=== PATIENT | female | born 1955 | race Caucasian/White ===

== ENCOUNTER 2018-06-21 07:17 | Day surgery (SDC) | payer MEDICARE, BC ==
[~2018-06-21] VITALS: Ht 152.4 cm; Wt 59.4 kg
[~2018-06-21 07:17] MED LIST: ACID CONTROL MA20 MG PO; ALPRAZOLAM0.25 MG PO; AUGMENTIN500TAB PO; BENTYL10 MG PO; BIOTUSSIN PO; C 250 PO; CALCIUM600 M2 PO; CELEBREX100 M1 PO; CELEXA40 MG PO; CITALOPRAM40 MG PO; CLARITIN10 M1 PO; COLACE100 MG PO; CYCLOBENZAPR10 MG PO; DICLOXACILL500 MG PO; ESTROGENS XX; EXCEDRI3 PO; FLUARIX QUADRIV1 IN1 IM; LEVOTHYROXIN25 MC1 PO; LIPITOR40 M1 PO; LIPITOR40 MG OR; LIPITOR40 MG PO; LOMOTIL2.5 MG PO; Levaquin PO; MEDDOSEPAK PO; METRONIDAZOL500 MG PO; MULTIVITAMI1 PO; NORCO1 TA1 OR; OXYCONTIN15 MG PO; PERCOCET 5/321 COMBO PO; PERCOCET1 TA4 PO; PNEUMOVAX 23 IM; PRILOSEC20 MG PO; PRILOSEC40 MG OR; PROTONIX40 M2 PO; SINGULAIR10 MG OR; SINGULAIR10 MG PO; TRAMADOL HCL E300 M1 PO; TRAZODONE50 MG PO; ULTRAM ER100 MG OR; ULTRAM ER300 MG PO; VENTOLIN HF1 INH; VITAMIN D22000 UNIT PO; XANAX0.25 MG PO; XGEVA SC
[2018-06-21 11:08] VITALS: BP 119/79
== END 2018-06-21 11:20 | disposition home or self-care (01) ==
LOC: ENDO 07:17
PROVIDERS: ATTEND Internal Medicine Gastroenterology
PROC: 0DJD8ZZ Inspection of Lower Intestinal Tract, Via Natural or Artificial Opening Endoscopic (ICD-10-PCS; principal; 2018-06-21)
DX: K57.31 Diverticulosis of large intestine without perforation or abscess with bleeding (principal); K64.8 Other hemorrhoids; K64.4 Residual hemorrhoidal skin tags; Q43.8 Other specified congenital malformations of intestine; K21.9 Gastro-esophageal reflux disease without esophagitis; R13.10 Dysphagia, unspecified; E03.9 Hypothyroidism, unspecified; J45.909 Unspecified asthma, uncomplicated; F32.9 Major depressive disorder, single episode, unspecified; M41.9 Scoliosis, unspecified

== ENCOUNTER 2018-06-27 11:00 | Outpatient (RCR) | payer MEDICARE, BC | END 2018-07-17 14:30 | disposition home or self-care (01) | LOC: PT 11:00 | PROVIDERS: ATTEND Physical Medicine & Rehabilitation Pain Medicine | DX: S16.1XXD Strain of muscle, fascia and tendon at neck level, subsequent encounter (principal); M54.2 Cervicalgia ==

== ENCOUNTER 2018-08-09 06:05 | Day surgery (SDC) | payer MEDICARE, BC ==
[~2018-08-09] VITALS: Ht 152.4 cm; Wt 59.4 kg
[~2018-08-09 06:05] MED LIST changes: -VITAMIN D22000 UNIT PO; +VITAMIN D32000 UNIT PO
[2018-08-09 08:14] VITALS: BP 113/63
== END 2018-08-09 08:35 | disposition home or self-care (01) ==
LOC: ENDO 06:05 → ORM 13:25 → ENDO 13:25 → ORM 14:30 → ENDO 14:30
PROVIDERS: ATTEND Internal Medicine Gastroenterology
PROC: 0D758ZZ Dilation of Esophagus, Via Natural or Artificial Opening Endoscopic (ICD-10-PCS; principal; 2018-08-09)
PROC: 0DB48ZX Excision of Esophagogastric Junction, Via Natural or Artificial Opening Endoscopic, Diagnostic (ICD-10-PCS; 2018-08-09)
PROC: 0DB78ZX Excision of Stomach, Pylorus, Via Natural or Artificial Opening Endoscopic, Diagnostic (ICD-10-PCS; 2018-08-09)
PROC: 0DB58ZX Excision of Esophagus, Via Natural or Artificial Opening Endoscopic, Diagnostic (ICD-10-PCS; 2018-08-09)
DX: K22.2 Esophageal obstruction (principal); K21.0 Gastro-esophageal reflux disease with esophagitis; K22.8 Other specified diseases of esophagus; Q39.6 Congenital diverticulum of esophagus; K29.50 Unspecified chronic gastritis without bleeding; Q40.8 Other specified congenital malformations of upper alimentary tract; K25.9 Gastric ulcer, unspecified as acute or chronic, without hemorrhage or perforation; K44.9 Diaphragmatic hernia without obstruction or gangrene; E03.9 Hypothyroidism, unspecified

== ENCOUNTER 2019-05-20 21:29 | Emergency (ER) | payer MEDICARE, BC ==
[~2019-05-20] VITALS: Ht 152.4 cm; Wt 59.1 kg
[2019-05-21 03:51] VITALS: BP 118/76
== END 2019-05-21 02:28 | disposition home or self-care (01) ==
LOC: ED 21:29
PROC: 0S9C3ZZ Drainage of Right Knee Joint, Percutaneous Approach (ICD-10-PCS; principal; 2019-05-20)
DX: S76.111A Strain of right quadriceps muscle, fascia and tendon, initial encounter (principal); M25.461 Effusion, right knee; X50.1XXA Overexertion from prolonged static or awkward postures, initial encounter; Y92.520 Airport as the place of occurrence of the external cause

== ENCOUNTER 2019-08-03 08:47 | Emergency (ER) | payer MEDICARE, BC ==
[~2019-08-03] VITALS: Ht 152.4 cm; Wt 56.0 kg
[2019-08-03] MEDS ORDERED: LEVOTHYROXIN50 MCG PO (08:58)
[2019-08-03] MEDS ORDERED: CARAFATE1 GM PO (09:03)
[2019-08-03] MEDS ORDERED: PRILOSEC20 MG/CAP PO (09:03)
[2019-08-03 09:08] LABS: HEMATOCRIT 40.8 % (37.0-47.0); HEMOGLOBIN 13.3 g/dl (12.0-16.0); IMMATURE GRANULOCYTES 0.4 % (0.0-5.0); MEAN CELL VOLUME 92.3 fL CALC (80.0-100.0); MEAN CORPUSCULAR HGB 30.1 pG CALC (26.0-32.0); MEAN CORPUSCULAR HGB CONC 32.6 g/L CALC (32.0-36.0); NEUT# 14.27 thou/uL (2.00-7.15); RED BLOOD COUNT 4.42 mill/uL (4.20-5.60); RED CELL DISTRI WIDTH 12.6 % (11.5-15.5)
[2019-08-03 09:27] LABS: ALBUMIN 4.3 g/dL (3.2-5.0); ALKALINE PHOSPHATASE 97 u/l (38-126); AMYLASE 128 u/l (30-110); ANION GAP 13 (6-22 (CALC)); BUN 10 mg/dL (8-23); BUN/CREATININE RATIO 18 (12-20 (CALC)); CARBON DIOXIDE 28 mmol/l (22-30); CHLORIDE 99 mmol/l (95-108); CREATININE 0.5 mg/dL (0.5-1.0); GFR > 60 ML/MIN (>=60 (CALC)); GFR FOR AFR.AMER. > 60 ML/MIN (>=60 (CALC)); LIPASE 68 u/l (23-300); POTASSIUM 3.6 mmol/l (3.5-5.1); SGOT/AST 25 u/l (9-36); SODIUM 135 mmol/l (137-146); TOTAL PROTEIN 6.8 g/dL (6.3-8.2)
[2019-08-03 09:35] LABS: BILIRUBIN, TOTAL 0.5 mg/dL (0.0-1.4)
[2019-08-03 11:02] LABS: URINE BILIRUBIN - DIPSTICK NEGATIVE (NEGATIVE); URINE BLOOD DIPSTICK NEGATIVE (NEGATIVE); URINE COLOR YELLOW; URINE GLUCOSE - DIPSTICK NEGATIVE (NEGATIVE); URINE KETONE 40 mg/dL (NEGATIVE); URINE LEUK ESTERASE NEGATIVE (NEGATIVE); URINE NITRITE - DIPSTICK NEGATIVE (Negative); URINE PH 8.5 (4.5-8.0); URINE PROTEIN - DIPSTICK NEGATIVE (NEG-TRACE); URINE SPECIFIC GRAVITY 1.015; URINE UROBILINOGEN - DIPSTICK 0.2 E.U./dL (0.2)
[2019-08-03 11:07] LABS: BARBITURATES NEGATIVE (NEGATIVE); COCAINE NEGATIVE (NEGATIVE); METHADONE NEGATIVE (NEGATIVE); TETRAHYDROCANNABIONOL NEGATIVE (NEGATIVE); TRICYLIC ANTIDEPRESSANTS NEGATIVE (NEGATIVE)
[2019-08-03 11:08] LABS: OXCYCODONE POSITIVE (NEGATIVE)
[2019-08-03] MEDS ORDERED: BACTRIM DS1 TAB PO (11:38)
[2019-08-03] MEDS ORDERED: PHENERGAN25 MG/TAB PO (11:38)
[2019-08-03 13:05] VITALS: BP 125/62
[2019-08-03 13:27] LABS: C. DIFFICILE TOXIN A&B NEGATIVE (NEGATIVE)
== END 2019-08-03 13:05 | disposition home or self-care (01) ==
LOC: ED 08:47
PROVIDERS: Emergency Medicine
DX: K52.9 Noninfective gastroenteritis and colitis, unspecified (principal)

== ENCOUNTER 2019-11-21 | Day surgery (SDC) | payer MEDICARE, BC ==
[~2019-11-21] MED LIST changes: +BACTRIM DS1 TAB PO; -C 250 PO; +CARAFATE1 GM PO; +LEVOTHYROXIN50 MCG PO; +PHENERGAN25 MG/TAB PO; +PRILOSEC20 MG/CAP PO; +VITAMIN C500 M5 PO
== END 2019-11-21 09:37 | disposition home or self-care (01) ==
PROC: 0DB48ZX Excision of Esophagogastric Junction, Via Natural or Artificial Opening Endoscopic, Diagnostic (ICD-10-PCS; principal; 2019-11-21)
PROC: 0DB78ZX Excision of Stomach, Pylorus, Via Natural or Artificial Opening Endoscopic, Diagnostic (ICD-10-PCS; 2019-11-21)
DX: K22.2 Esophageal obstruction (principal); K22.5 Diverticulum of esophagus, acquired; K29.50 Unspecified chronic gastritis without bleeding; K25.9 Gastric ulcer, unspecified as acute or chronic, without hemorrhage or perforation; K44.9 Diaphragmatic hernia without obstruction or gangrene; E03.9 Hypothyroidism, unspecified

== ENCOUNTER 2020-04-14 18:00 | Inpatient (IN) | payer MEDICARE, BC ==
[~2020-04-14] VITALS: Ht 152.4 cm; Wt 51.0 kg
[2020-04-14 18:15] VITALS: BP 123/69
--- NOTE | 2020-04-14 18:15 | NUR ---
PT ARRIVED TO MED/SURG ROOM 274 IN STABLE CONDITION VIA STRETCHER ACCOMPANIED BY mDialog;PT AMMBULATED TO BEDSIDE WITH A STEADY GAIT;PT A&O X3,ORIENTED TO ROOM AND CALL LIGHT SYSTEM;VS AND WT OBTAINED BY ROBI PETERS;PT ASSISTED TO RESTROOM PER REQUEST AND THEN REPOSITIONED BACK INTO BED FOR COMFORT;PT DENIES ANY ADDITIONAL NEEDS AT THIS TIME;ENCOURAGED TO CALL FOR ASSISTANCE IF NEEDED;FALL PRECAUTIONS IN PLACE WITH BED IN THE LOWEST POSITION AND CALL LIGHT IN REACH;WILL CONTINUE TO MONITOR
--- NOTE | 2020-04-14 19:55 | NUR ---
PT RESTING IN BED, ALERT AND ORIENTED. RESPIRATIONS EVEN AND UNLABORED ON RA. LUNGS SOUND CLEAR. PEDAL PULSES ARE STRONG. PT REPORTS HAVING PAIN IN HER HEAD, NECK, AND BACK. MD TO BE NOTIFIED. PT ORIENTED TO ROOM AND CALL [facility] SYSTEM. SAFETY PRECAUTIONS IN PLACE. WILL CONTINUE TO MONITOR.
--- NOTE | 2020-04-15 00:20 | NUR ---
PT RESTING IN BED WITH EYES CLOSED. RESPIRATIONS EVEN AND UNLABPORED ON RA. NO S/S OF DISTRESS AT THIS TIME. SAFETY PRECAUTIONS IN PLACE. WILL CONTINUE TO MONITOR.
[2020-04-15 04:09] VITALS: BP 96/62
--- NOTE | 2020-04-15 04:45 | NUR ---
PT ASISTED TO THE RESTROOM X1 ASSIST, GATE STEADY, PT ENCOURAGED TO CALL FOR ASSISTANCE WHEN FINISHED. SAFETY PRECAUTIONSIN PLACE. WILL CONTINUE TO MONITOR.
[2020-04-15 05:35] LABS: MEAN CELL VOLUME 94.6 fL CALC (80.0-100.0); MEAN CORPUSCULAR HGB CONC 32.8 g/dL CAL (32.0-36.0); RED BLOOD COUNT 3.68 mill/uL (4.20-5.60); RED CELL DISTRI WIDTH 13.2 % (11.5-15.5)
[2020-04-15 05:48] LABS: HEMATOCRIT 34.8 % (37.0-47.0); HEMOGLOBIN 11.4 g/dl (12.0-16.0)
[2020-04-15 06:07] LABS: ALKALINE PHOSPHATASE 62 u/l (38-126); BILIRUBIN, TOTAL 0.3 mg/dL (0.0-1.4); BUN 10 mg/dL (8-23); BUN/CREATININE RATIO 19 (12-20 (CALC)); CHLORIDE 106 mmol/l (95-108); CREATININE 0.5 mg/dL (0.5-1.0); GFR > 60 ML/MIN (>=60 (CALC)); GFR FOR AFR.AMER. > 60 ML/MIN (>=60 (CALC)); POTASSIUM 3.2 mmol/l (3.5-5.1); SGOT/AST 26 u/l (9-36); SODIUM 134 mmol/l (137-146)
[2020-04-15 06:11] LABS: ALBUMIN 2.8 g/dL (3.2-5.0); ANION GAP 7 (6-22 (CALC)); CARBON DIOXIDE 24 mmol/l (22-30); TOTAL PROTEIN 4.8 g/dL (6.3-8.2)
--- NOTE | 2020-04-15 06:55 | NUR ---
REPORT RECEIVED FROM JACEY LYONS;PT APPEARS TO BE SLEEPING IN SUPINE POSITION;NO S/S OF DISTRESS NOTED;RESPIRATIONS EVEN AND UNLABORED ON RA;IV FLUIDS INFUSING WITH EASE PER ORDER;ALL SAFETY PRECAUTIONS IN PLACE WITH BED IN THE LOWEST POSITION AND CALL LIGHT IN REACH;WILL CONTINUE TO MONITOR
--- NOTE | 2020-04-15 08:15 | NUR ---
PT RESTING IN SEMI FOWLERS POSITION,A&O X3;VS OBTAINED AND ASSESSMENT COMPLETED;PT REPORTS HEADACHE PAIN RATING 8/10 ON THE PAIN SCALE AND REQUESTS PRN TYLENOL. ALHAJIANRP NOTIFIED OF TYLENOL REQUEST AND NEW ORDERS RECEIVED,PT TO BE MEDICATED PER EMAR;RESPIRATIONS EVEN AND UNLABORED ON RA,CLEAR LUNG SOUNDS;ABDOMEN SOFT ON PALPATION AND ACTIVE IN ALL 4 QUADRANTS, TENDERNESS NOTED TO ALL QUADRANTS;STRONG PEDAL PULSES;SKIN INTACT;EMS #20G TO LAC INFUSING NS @ 100ML/HR,SITE APPEARS HEALTHY;PT DENIES ANY ADDITIONAL NEEDS AT THIS TIME AND IS ENCUORAGED TO CALL FOR ASSISTANCE IF NEEDED;FALL PRECAUTIONS IN PLACE WITH CALL LIGHT IN REACH;WILL CONTINE TO MONITOR
[2020-04-15 08:16] VITALS: BP 101/63
--- NOTE | 2020-04-15 10:10 | NUR ---
PT REPORTS NAUSEA AND REQUESTS ANTIEMETIC. FILIBERTO MANE NOTIFIED. NO NEW ORDERS RECEIVED AT THIS TIME.
--- NOTE | 2020-04-15 10:43 | NUR ---
PT MEDICATED WITH PRN ZOFRAN 4MG IVP AT THIS KAY.WILL CONTINUE TO MONITOR FOR EFFECTIVENESS
--- NOTE | 2020-04-15 11:40 | NUR ---
AT BEDSIDE DISCUSSING POC.
--- NOTE | 2020-04-15 12:35 | NUR ---
PT RESTING IN SEMI FOWLERS POSITION;RESPIRATIONS EVEN AND UNLABORED ON RA;PT REPORTS ABDOMINAL PAIN RATING 8/10 ON THE PAIN SCALE AND REQUESTS PAIN MEDICATION,PT MEDICATED WITH PRN PERCOCET 10/325MG PO AT THIS TIME;IV FLUIDS CONTINUE TO INFUSE WITH EASE;PT HAD A SCANT/BROWN BM AND STOOL SAMPLE COLLECTED AT THIS TIME;PT DENIES ANY ADDITIONAL NEEDS AND IS ENCOURAGED TO CALL FOR ASSISTANCE IF NEEDED;CALL LIGHT IN REACH;WILL CONTINUE TO MONITOR
--- NOTE | 2020-04-15 14:43 | NUR ---
CALL RECEIVED FROM VITOR IN THE LAB. PT IS POSITIVE FOR C DIFF. CONTACT PLUS PRECAUTIONS PUT INTO PLACE AT THIS TIME.
[2020-04-15 15:30] VITALS: BP 115/66
--- NOTE | 2020-04-15 16:50 | NUR ---
PT RESTING AT BEDSIDE;RESPIRATIONS EVEN AND UNLABORED ON RA;PT REPORTS HEADACHE/ABDOMINAL PAIN RATING 5/10 ON THE PAIN SCALE AND REQUESTS PRN TYLENOL, PT TO BE MEDICATED WITH TYLENOL 650MG PO;IV FLUIDS CONTINUE TO INFUSE WITH EASE;PT DENIES ANY ADDITIONAL NEEDS AT THIS TIME;FALL AND CONTACT PRECAUTIONS REMAIN IN PLACE WITH CALL LIGHT IN REACH;WILL CONTINUE TO MONITOR
[2020-04-15 19:00] VITALS: BP 114/68
--- NOTE | 2020-04-15 21:02 | NUR ---
PT RESTING IN BED, ALERT AND ORIENTED. RESPIRATIONS EVEN AND UNLABORED ON RA, LUNGS SOUND CLEAR. PEDAL PULSES STRONG. PT EDUCATED ON PLAN OF CARE. SAFETY PRECAUTIONS IN PLACE, WILL CONTINUE TO MONTIOR.
--- NOTE | 2020-04-16 00:18 | NUR ---
PT RESTING IN BED RESPIRATIONS EVEN AND UNLABORED, NO S/S OF DISTRESS AT THIS TIME, WILL CONTINUE TO MONITOR.
--- NOTE | 2020-04-16 03:37 | NUR ---
PT RESTING IN BED NO S/S OF DISTRESS AT THIS TIME. SAFETY PRECAUTIONS IN PLACE.WILL CONTINUE TO MONITOR.
[2020-04-16 04:30] VITALS: BP 131/80
[2020-04-16 05:03] LABS: HEMATOCRIT 36.6 % (37.0-47.0); HEMOGLOBIN 11.4 g/dl (12.0-16.0); IMMATURE GRANULOCYTES 0.3 % (0.0-5.0); MEAN CELL VOLUME 96.6 fL CALC (80.0-100.0); MEAN CORPUSCULAR HGB 30.1 pG CALC (26.0-32.0); MEAN CORPUSCULAR HGB CONC 31.1 g/dL CAL (32.0-36.0); NEUT# 4.1 thou/uL (2.00-7.15); RED BLOOD COUNT 3.79 mill/uL (4.20-5.60); RED CELL DISTRI WIDTH 13.3 % (11.5-15.5)
[2020-04-16 05:38] LABS: ALKALINE PHOSPHATASE 62 u/l (38-126); ANION GAP 4 (6-22 (CALC)); BILIRUBIN, TOTAL 0.3 mg/dL (0.0-1.4); BUN 4 mg/dL (8-23); BUN/CREATININE RATIO 8 (12-20 (CALC)); CARBON DIOXIDE 25 mmol/l (22-30); CHLORIDE 111 mmol/l (95-108); CREATININE 0.5 mg/dL (0.5-1.0); GFR > 60 ML/MIN (>=60 (CALC)); GFR FOR AFR.AMER. > 60 ML/MIN (>=60 (CALC)); MAGNESIUM 1.9 mg/dL (1.6-2.3); POTASSIUM 3.7 mmol/l (3.5-5.1); SGOT/AST 27 u/l (9-36); SODIUM 137 mmol/l (137-146); TOTAL PROTEIN 5.1 g/dL (6.3-8.2)
[2020-04-16 06:01] LABS: TSH, 3RD GENERATION 2.26 uIU/mL (0.47 - 4.68)
[2020-04-16 08:10] VITALS: BP 141/68
--- NOTE | 2020-04-16 08:10 | NUR ---
ASSESSMENT IS COMPLETED: IV SITE IS FREE FROM REDNESS OR EDEMA. HR IS REG,PULSES ARE STRONG X4, ABD IS SOFT WITH ACTIVE BS. BREATH SOUNDS ARE CLEAR BILATERALLY. CONTINEU TO OSBERVE AND CLARICEIOR.
--- NOTE | 2020-04-16 12:30 | NUR ---
PT IS RELAXING AND TALKING ON THE PHONE WITH FAMILY NO DISTRESS NOTED. IV SITE IS FREE FROM REDNESS OR EDEMA. CONTINUE TO OBSERVE AND MONITOR.
[2020-04-16 15:00] VITALS: BP 133/73
--- NOTE | 2020-04-16 16:15 | NUR ---
PT IS RELAXING IN BED NO DISTRESS NOTED. CONTINUE TO OSBERVE AND MONITOR. IV SITE IS FREE FROM REDNESS OR EDEMA
[2020-04-16 19:00] VITALS: BP 140/62
--- NOTE | 2020-04-16 20:30 | NUR ---
PT RESTING IN BED. RESPIRATIONS EVEN AND UNLABORED. PT REPORTS HAVING PAIN PT TO BE MEDICATED PER EMAR ORDERS. SAFETY PRECAUTIONSIN PLACE. WILL CONTINUE TO MONITOR.
--- NOTE | 2020-04-16 22:58 | NUR ---
PT RESTING IN BED, ALERT AND ORIENTED. RESPIRATIONS EVEN AND UNLABORED ON R LUNGS SOUND CLEAR. PEDAL PULSES STRONG. SAFETY PRECAUTIONS IN PLACE, WILL CONTINUE TO MONTIOR.
--- NOTE | 2020-04-17 00:15 | NUR ---
PT RESTING IN BED. RESPIRATIONS EVEN AND UNLABORED ON RA. NO S/S OF DISTRESS AT THIS TIME. SAFETY PRECAUTIONS IN PLACE. WILL CONTINUE TO MONITOR.
[2020-04-17 04:10] VITALS: BP 135/75
--- NOTE | 2020-04-17 04:34 | NUR ---
PT RESTING IN BED. RESPIRATIONS EVEN AND UNLABORED ON RA. NO S/S OF DISTRESS AT THIS TIME. SAFETY PRECAUTIONS IN PLACE. WILL CONTINUE TO MONITOR.
[2020-04-17 08:00] VITALS: BP 132/81
--- NOTE | 2020-04-17 08:00 | NUR ---
ASSESSMENT IS COMPLETED: IV SITE IS FREE FROM REDNESS OR EDEMA. HR IS REG,PULSES ARE STRONG X4, ABD IS SOFT WITH ACTIVE BS. BREATH SOUNDS ARE CLEAR ,BILATERALLY. PT INQUIRED ABOUT WHAT SHE CAN EAT.
--- NOTE | 2020-04-17 08:45 | NUR ---
GAVE LITERATURE RE: ROUGHAGE ON FOOD AND CDIFF.
--- NOTE | 2020-04-17 12:30 | NUR ---
PT IS RELAXING IN BED WITH NO DISTRESS NOTED. IV SITE IS FREE FROM REDNESS OR EDEMA.
[2020-04-17 14:50] VITALS: BP 135/68
--- NOTE | 2020-04-17 16:00 | NUR ---
REPORT REC FROM LIZANDRO FELICIANO. PT LAYING IN BED. NO DISTRESS OR NEEDS AT THIS TIME. CONTACT PLUS PRECAUTIONS IN PLACE. CALL LIGHT IN REACH. CONTINUE TO MONITOR.
[2020-04-17 18:31] VITALS: BP 132/84
--- NOTE | 2020-04-17 20:00 | NUR ---
PT RESTING IN BED,ALERT AND ORIENTED. RESPIRATIONS EVEN AND UNLABORED ON RA. LUNGS SOUND CLEAR. PEDAL PULSES STRONG. PT REPORTS HAVING PAIN IN HER HEAD AND NECK, PT TO BE MEDICATED PER EMAR ORDERS. SAFETY PRECAUTIONS IN PLACE. WILL CONTINUE TO MONITOR.
--- NOTE | 2020-04-18 02:09 | NUR ---
PT RESTING IN BED, ALERT AND ORIENTED. RESPIRATIONS EVEN AND UNLABORED ON RA. NO S/S OF DISTRESS AT THIS TIME. SAFETY PRECAUTIONS IN PLACE. WILL CONTINUE TO MONITOR.
[2020-04-18 03:40] VITALS: BP 143/85
--- NOTE | 2020-04-18 04:19 | NUR ---
PT RESTING IN BED. PT FEELING EMOTIONAL, ALLOWED FOR PT TO VOICE CONCERNS. SAFETY PRECAUTIONS IN [place]. WILL CONTINUE TO MONITOR.
[2020-04-18 08:06] VITALS: BP 147/81
--- NOTE | 2020-04-18 08:44 | NUR ---
SHIFT CHANGE REPORT, PT AWAKE ALERT AND ORIENTED, C/O LEFT NECK PAIN AND DIARRHEA, IVF INFUSING, CALL [facility] IN REACH
--- NOTE | 2020-04-18 12:37 | NUR ---
DR MARY ROUNDED AND DISCUSSED PLAN OF CARE, PT STATED UNDERSTANDING. PT REQUEST PAIN MED FOR NECK PAIN, ALL NEEDS ADDRESSED.
[2020-04-18 15:00] VITALS: BP 141/86
--- NOTE | 2020-04-18 15:39 | NUR ---
RESTING IN BED, ALL NEEDS MET/ADDRESSED.
[2020-04-18 19:20] VITALS: BP 144/88
--- NOTE | 2020-04-18 20:40 | NUR ---
UPON ENTERING ROOM PT FOUND TO BE RESTING IN BED. APPEARS COMFORTABLE AND IN NO APPARENT DISTRESS. RESPIRATIONS ARE REGULAR AND UNLABORED. PHYSICAL ASSESMENT COMPLETE AT THIS TIME. SCHEDULED MED(S) ADMINISTERED, SEE E-MAR. PLAN OF CARE REVIEWED, PT DENIES QUESTIONS, VERBALIZES UNDERSTANDING. DENIES NEEDS AT THIS TIME. ITEMS WITHIN REACH, BED LOCKED IN LOW POSITION W/ BEDRAILS UP X2. CALL [facility] WITHIN REACH, AGREES TO CALL PRN.
--- NOTE | 2020-04-19 00:42 | NUR ---
PT APPEARS TO BE SLEEPING COMFORTABLY, NO APPARENT DISTRESS, RESPIRATIONS REGULAR AND UNLABORED. CALL [facility] REMAINS WITHIN REACH.
[2020-04-19 03:15] VITALS: BP 134/84
--- NOTE | 2020-04-19 05:57 | NUR ---
PHYSICAL ASSESMENT UNCHANGED FROM BEGINING OF SHIFT BASELINE. PT AFEBRILE, HEMODYNAMICS STABLE. DENIES NEEDS AT THIS TIME. ITEMS REMAIN WITHIN REACH. BED REMAINS LOCKED IN LOW POSITION W/ BEDRAILS UPX2. CALL [facility] REMAINS WITHIN REACH, AGREES TO CALL PRN.
--- NOTE | 2020-04-19 07:15 | NUR ---
REPORT RECEIVED FROM JACEY HAWKINS;PT APPEARS TO BE SLEEPING IN SUPINE POSITION;NO S/S OF DISTRESS NOTED;RESPIRATIONS EVEN AND UNLABORED ON RA;IV FLUIDS INFUSING WITH EASE TO LACE;CONTACT PLUS PRECAUTIONS NOTED;ALL SAFETY PRECAUTIONS IN PLACE WITH BED IN THE LOWEST POSITION AND CALL LIGHT IN REACH;WILL CONTINUE TO MONITOR
[2020-04-19 09:29] VITALS: BP 140/91
--- NOTE | 2020-04-19 09:30 | NUR ---
PT RESTING IN SEMI FOWLERS POSITION,A&O X3;VS OBTAINED AND ASSESSMENT COMPLETED;PT REPORTS NECK AND ABDOMINAL PAIN RATING 8/10 ON THE PAIN SCALE AND REQUESTS PRN PAIN MEDICATION,PT TO BE MEDICATED WITH PRN PERCOCET 10/325MG PO PER EMAR;RESPIRATIONS EVEN AND UNLABORED ON RA,CLEAR LUNG SOUNDS;ABDOMEN SOFT ON PALPATION AND HYPERACTIVE IN ALL 4 QUADRANTS, TENDERNESS NOTED;STRONG PEDAL PULSES;SKIN INTACT;EMS #20G TO LAC INFUSING NS @ 100ML/HR,SITE APPEARS HEALTHY;PT EDUCATED ON EMS IV SITE EXPIRATION AND REFUSES SITE CHANGE AT THIS TIME;PT REMAINS ON CONTACT PLUS PRECAUTIONS FOR C-DIFF;PT DENIES ANY ADDITIONAL NEEDS AT THIS TIME AND IS ENCOURAGED TO CALL FOR ASSISTANCE IF NEEDED;CALL LIGHT IN REACH;WILL CONTINUE TO MONITOR
--- NOTE | 2020-04-19 12:30 | NUR ---
PT RESTING IN SEMI FOWLERS POSITION;RESPIRATIONS EVEN AND UNLABORED ON RA;PT DENIES ANY CURRENT PAIN OR NEEDS;IV FLUIDS INFUSING WITH EASE PER ORDER;PO ABX ADMINISTERED AT THIS TIME;PT DENIES ANY ADDITIONAL NEEDS AND IS ENCOURAGED TO CALL FOR ASSISTANCE IF NEEDED;FALL AND CONTACT PRECAUTIONS REMAIN IN PLACE;CALL LIGHT IN REACH;WILL CONTINUE TO MONITOR
[2020-04-19 15:00] VITALS: BP 140/91
--- NOTE | 2020-04-19 15:25 | NUR ---
PT RESTING IN SEMI FOWLERS POSITION;RESPIRATIONS EVEN AND UNLABORED ON RA;PT REPORTS ABDOMEN AND NECK PAIN RATING 7/10 ON THE PAIN SCALE,PT MEDICATED WITH PRN TYLENOL 650MG PO AND BENTYL 20MG PO PER REQUEST;IV SITE REMAINS PATENT INFUSING NS WITH EASE;PT DENIES ANY ADDITIONAL NEEDS AT THIS TIME AND IS ENCOURAGED TO CALL FOR ASSISTANCE IF NEEDED;CALL LIGHT IN REACH;WILL CONTINUE TO MONITOR
--- NOTE | 2020-04-19 19:00 | NUR ---
RECEIVED REPORT FROM NURSE FRANKLYN, PATIENT RESTING IN BED, C/O ABDOMINAL PS 05/24, WILL MEDICATE, CALL LIGHT AT REACH.
[2020-04-19 19:06] VITALS: BP 120/71
--- NOTE | 2020-04-19 20:00 | NUR ---
SHIFT ASSESSMENT DONE, PRN PERCOCET GIVEN FOR ABDOMINAL PAIN, BM X 6 PREVIOUS SHIFT, WITH ONGOING IV NS @ 100CC/HR INFUSING WELL ON LAC REMAINS ON CONTACT PLUS ISOLATION, ON FULL LIQUID DIET, CALL LIGHT AT REACH.
--- NOTE | 2020-04-19 21:00 | NUR ---
SPOKE TO ID, MADE AWARE ABOUT BM X 6 AND STIILL HAVING ABDOMINAL PAIN, AND MADE THE FOLLOWING RECCOMENDATION.
--- NOTE | 2020-04-19 22:00 | NUR ---
DR. MARY MADE AWARE OF ID RECCOMENDATIONS.
--- NOTE | 2020-04-20 00:42 | NUR ---
NEW IV REINSERTED, NO COMPLAINTS AT THIS TIME, CALL LIGHT AT REACH.
[2020-04-20 04:00] VITALS: BP 113/71
--- NOTE | 2020-04-20 04:00 | NUR ---
PATIENT APPEARS TO BE SLEEPING WITH EYES CLOSED, BREATHING EVEN AND UNLABORED CALL LIGHT AT REACH.
[2020-04-20 07:15] VITALS: BP 133/79
--- NOTE | 2020-04-20 07:30 | NUR ---
RECIEVED REPORT FROM KOURTNEY. RN PT IN BATHROOM UPON ENTERING ROOM. PT DENIED ANY PAIN OR ADDITIONAL NEEDS AT THIS TIME. ALL SAFTEY PRECAUTIONS IN PLACE WITH CALL LIGHT IN REACH. WILL CONTINUE TO MONITOR
--- NOTE | 2020-04-20 09:35 | NUR ---
ASSESSMENT AND VITALS COMPLETED. BP 133/79, HR 85, O2 95% ON ROOM AIR. RESPIRATIONS ARE EVEN AND UNLABORED WITH NO SIGNS OF DISTRESS. LUNG SOUNDS ARE CLEAR. HEART RHYTHM IS NORMAL. BOWEL SOUNDS ARE HYPOTACTIVE IN ALL QUADRANTS WITH SLIGHT TENDERNESS.LAST REPORTED BM 04/20/20. RADIAL AND PEDAL PULSES ARE STRONG WITH NORMAL CAPILLARY REFILL. SKIN IS WARM AND DRY WITH NO BREAK DOWN OR EDEMA. #22G IN LEFT WRIST NS RUNNING AT 100 ML ORDERED, SITE APPEARS HEALTHY AND PATNET.PT COMPLAINS OF 6/10 PAIN IN NECK AND HEAD, PT REQUESTED TYLENOL. TYLENOL ADMINISTERED WITH MORNING MEDICATIONS.PT IS A/O X3 AND AMBULATORY. CONTACT PLUS PRECAUTIONS REMAIN IN PLACE. ALL SAFTEY PRECAUTIONS IN PLACE WITH CALL LIGHT IN REACH. WILL CONTINUE TO MONITOR
--- NOTE | 2020-04-20 10:39 | NUR ---
DR MARY AND WRITTER AT BEDSIDE DISCUSSING POC. CHANGED DIET TO SOFT TO SEE IF TOLERATED. POSSIBLE DISCARGE IN AFTERNOON IF TOLERATED. ALL SAFETY PRECAUTIONS REAMIN IN PLACE WITH CALL LIGHT IN REACH
[2020-04-20] MEDS ORDERED: FLORASTOR250 M1 PO (10:48)
[2020-04-20] MEDS ORDERED: VANCOMYCIN HCL250 M1 PO (10:48)
[2020-04-20] MEDS ORDERED: DICYCLOMINE20 MG PO (10:48)
--- NOTE | 2020-04-20 12:18 | NUR ---
PT SITTING ON SIDE OF BED EATING LUNCH. RESPIRATIONS ARE EVEN AND UNLABORED WITH NO SIGNS OF DISTRESS. PT DENIES ANY PAIN OR DISCOMFORTS AT THIS TIME. ALL SAFTEY PRECAUTIONS IN PLACE WITH CALL LIGHT IN REACH. WILL CONTINUE TO MONITOR
[2020-04-20 13:11] VITALS: BP 125/65
[2020-04-20 15:00] VITALS: BP 124/75
--- NOTE | 2020-04-20 15:50 | NUR ---
PT GOING TO CT VIA WHEELCHAIR IN STABLE CONDITION ACCOMPAINED BY ROBI ERIC
--- NOTE | 2020-04-20 16:09 | NUR ---
PT EDUCATED ON DISCHARGE INSTRUCTIONS AND NEW MEDICATIONS; BREWERS YEAST, VANCO PO,AND DICYCLOMINE. PT VERBALIZED UNDERSTANDING . IV REMOVED AT THIS TIME WITH CATHATER STILL INTACT. PT TOLERATED WELL. AWAITING TRANSPORTATION AT THIS TIME.ALL SAFTEY PRECAUTIONS IN PLACE WITH CALL LIGHT IN REACH. WILL CONTINUE TO MONITOR
--- NOTE | 2020-04-20 16:35 | NUR ---
Discharge instructions given. Patient verbalizes understanding of same. Discharged in stable condition via Wheelchair to Home with family. All belongings sent with pt. PT LEFT VIA WHEELCHAIR IN STABLE CONDITION WITH ALL DISCHARGE INSTRUCTIONS, MEDICATION PRESCRIPITION AND ALL BELONGINGS, ACCOMPAINED BY ROBI MARTINEZ
== END 2020-04-20 16:28 | disposition home or self-care (01) | DRG 373 ==
LOC: MS2 18:00
PROVIDERS: Nurse Practitioner Family; ADMIT Internal Medicine; ATTEND Internal Medicine
DX: A04.72 Enterocolitis due to Clostridium difficile, not specified as recurrent (principal); E87.6 Hypokalemia; E03.9 Hypothyroidism, unspecified; E78.5 Hyperlipidemia, unspecified; G89.29 Other chronic pain; M54.9 Dorsalgia, unspecified; K59.03 Drug induced constipation; T40.2X5A Adverse effect of other opioids, initial encounter; Z20.828 Contact with and (suspected) exposure to other viral communicable diseases
CPT/HCPCS: G0378; G0379; Q3014